=== PATIENT | male | born 1960 | race Caucasian/White ===

== ENCOUNTER 2023-04-18 08:03 | Day surgery (SDC) | payer BC ==
[2023-04-15 16:27] VITALS: BMI 34.2
[2023-04-18 08:26] VITALS: RESP 18
[2023-04-18 10:47] VITALS: BP 122/75; PULSE 74; TEMP 98.1
== END 2023-04-18 10:50 | disposition home or self-care (01) ==
LOC: FASU-ENDO 08:03
PROVIDERS: ATTEND Internal Medicine Gastroenterology
PROC: 0DBN8ZX Excision of Sigmoid Colon, Via Natural or Artificial Opening Endoscopic, Diagnostic (ICD-10-PCS; principal; 2023-04-18 10:02)
DX: Z12.11 Encounter for screening for malignant neoplasm of colon (principal); K63.5 Polyp of colon; K64.1 Second degree hemorrhoids; K62.5 Hemorrhage of anus and rectum
CPT/HCPCS: 82962; 88305-TC